=== PATIENT | female | born 1970 | race Caucasian/White ===

== ENCOUNTER 2016-06-26 19:04 | Emergency (ER) | payer OTHER ==
[~2016-06-26] VITALS: Ht 157.5 cm; Wt 117.2 kg
[~2016-06-26 19:04] MED LIST: ADVAIR 100/501 DISK IH; ALBUTEROL SULF8.5 GM IH; DOXYCYCLINE HY100 MG PO; LEXAPRO20 MG PO; MAXALT10 MG PO; PREDNISONE20 MG PO; TRAMADOL HCL50 MG PO; TRAZODONE HCL50 MG PO; ZOFRAN4 MG PO
[2016-06-26] MEDS ORDERED: SYMBICORT60 INHALAT IH (19:36)
[2016-06-26 20:28] LABS: AMPHETAMINE NEGATIVE (500 ng/mL); BARBITURATES NEGATIVE (200 ng/mL); BENZODIAZEPINES NEGATIVE (150 ng/mL); COCAINE NEGATIVE (150 ng/mL); INTERNAL CONTROLS VALID? YES; METHADONE NEGATIVE (200 ng/mL); METHAMPHETAMINE NEGATIVE (500 ng/mL); OPIATES (MORPHINE) NEGATIVE (100 ng/mL); OXYCODONE NEGATIVE (100 ng/mL); PHENCYCLIDINE NEGATIVE (25 ng/mL); PROPOXYPHENE NEGATIVE (300 ng/mL); THC CANNABINOIDS NEGATIVE (50 ng/mL); TRICYCLIC ANTIDEPRESSANTS NEGATIVE (300 ng/mL)
[2016-06-26 20:42] LABS: BASOPHIL COUNT 0.1 K/uL (0-0.1); EOSINOPHIL (%) 1.5 % (0-5); EOSINOPHIL COUNT 0.1 K/uL (0-0.3); HEMATOCRIT 39.6 % (36.0-46.0); IMMATURE GRANULOCYTE (%) 0.4 % (0.0-0.7); INSTRUMENT ABS NEUTROPHIL CT 6.1 K/uL; LYMPHOCYTE COUNT 2.6 K/uL (1.0-2.8); MCH 29.7 PG (29.0-34.0); MCHC 32.1 G/DL (30.0-36.0); MCV 92.5 FL (83-99); MEAN PLAT.VOLUME 12.2 uM^3 (9.5-12.4); MONOCYTE (%) 6.8 % (3-12); MONOCYTE COUNT 0.7 K/uL (0-0.8); NEUTROPHIL (%) 63.8 % (45-76); NEUTROPHIL COUNT 6.1 K/uL (1.8-6.4); PLATELET COUNT 251 K/uL (156-360); RBC DIS.WIDTH-CV 13.3 % (11.8-14.6); RBC DIS.WIDTH-SD 45.3 % (39-53); RED BLOOD COUNT 4.28 M/uL (3.80-5.20); WHITE BLOOD COUNT 9.6 K/uL (4.1-10.2)
[2016-06-26 21:00] LABS: CHLORIDE 110 mEq/L (99-109); POTASSIUM 3.4 mEq/L (3.7-5.4); SODIUM 142 mEq/L (136-147)
[2016-06-26 21:02] LABS: GLUCOSE 111 mg/dL (70-99)
[2016-06-26 21:03] LABS: ANION GAP 9 MEQ/L (2-14)
[2016-06-26 21:05] LABS: GFR ESTIMATE (CALCULATED) > 59 mL/min/; SERUM ETHYL ALCOHOL < 10 mg/dL
[2016-06-26 21:06] LABS: UREA NITROGEN (BUN) 14 mg/dL (9-23)
[2016-06-26] MEDS ORDERED: XANAX0.5 MG PO (22:24)
[2016-06-26 23:25] VITALS: BP 147/66
== END 2016-06-26 23:26 | disposition home or self-care (01) ==
LOC: EME 19:04
PROVIDERS: Emergency Medicine
DX: F33.1 Major depressive disorder, recurrent, moderate (principal); F41.9 Anxiety disorder, unspecified; J45.909 Unspecified asthma, uncomplicated
CPT/HCPCS: 80048; 85025; 90839; G0480

== ENCOUNTER 2016-08-12 13:34 | Emergency (ER) | payer OTHER ==
[~2016-08-12] VITALS: Ht 157.5 cm; Wt 116.8 kg
[~2016-08-12 13:34] MED LIST changes: +SYMBICORT60 INHALAT IH; +XANAX0.5 MG PO
[2016-08-12 13:38] VITALS: BP 165/88
[2016-08-12] MEDS ORDERED: LIDODERM 5% P1 PATCH TD (14:54)
[2016-08-12] MEDS ORDERED: PERCOCET 5/31 TABLET PO (14:54)
[2016-08-12] MEDS ORDERED: PREDNISONE20 MG PO (14:54)
[2016-08-12] MEDS ORDERED: FLEXERIL10 MG PO (14:54)
== END 2016-08-12 15:22 | disposition home or self-care (01) ==
LOC: EME 13:34
DX: S39.012A Strain of muscle, fascia and tendon of lower back, initial encounter (principal); X50.9XXA Other and unspecified overexertion or strenuous movements or postures, initial encounter
CPT/HCPCS: 99281; 99283

== ENCOUNTER 2016-08-15 20:35 | Emergency (ER) | payer OTHER ==
[~2016-08-15] VITALS: Ht 157.5 cm; Wt 118.3 kg
[~2016-08-15 20:35] MED LIST changes: +FLEXERIL10 MG PO; +LIDODERM 5% P1 PATCH TD; +PERCOCET 5/31 TABLET PO
[2016-08-15] MEDS ORDERED: VALIUM5 MG PO (23:51)
[2016-08-15] MEDS ORDERED: INDOCIN50 MG PO (23:51)
[2016-08-16 00:04] VITALS: BP 179/104
== END 2016-08-16 00:06 | disposition home or self-care (01) ==
LOC: EME 20:35 → RME 20:35
DX: M51.37 Other intervertebral disc degeneration, lumbosacral region (principal); S39.012A Strain of muscle, fascia and tendon of lower back, initial encounter; M54.32 Sciatica, left side; M54.31 Sciatica, right side
CPT/HCPCS: 99281; 99284; J3010